=== PATIENT | female | born 2000 | race Caucasian/White ===

== ENCOUNTER 2025-04-09 10:22 | Emergency (ER) | payer SELFPAY ==
[~2025-04-09] VITALS: Ht 162.6 cm; Wt 52.2 kg
[2025-04-09] MEDS ORDERED: GABA-1172 PO (10:40)
[2025-04-09] MEDS ORDERED: METH36TA13 PO (10:41)
[2025-04-09] MEDS ORDERED: ABIL10TA9 PO (10:41)
[2025-04-09 11:15] LABS: BASO # 0.0 10^3/uL (0.0-0.2); BASO % 0.3 % (0.0-1.0); EOS # 0.1 10^3/uL (0.0-0.5); EOS % 0.4 % (0.0-3.0); LYMPH # 1.6 10^3/uL (1.5-5.0); LYMPH % 13.5 % (24.0-44.0); MONO # 0.6 10^3/uL (0.0-0.8); MONO % 5.4 % (2.0-8.0); NEUTROPHILS # 9.4 10^3/uL (1.5-8.5); NEUTROPHILS % 80.0 % (36.0-66.0); PLATELET COUNT, AUTOMATED 536 10^3/uL (150-450)
[2025-04-09] MEDS: HALOPERIDOL LACTATE 5 MG/ML VIAL IV STA (11:18)
[2025-04-09] MEDS: NS (Normal Saline) 0.9% 1,000 ML IV ONE (11:19)
[2025-04-09 11:36] LABS: HCG, SERUM QUALITATIVE NEGATIVE (NEGATIVE)
[2025-04-09 11:38] LABS: ALT/SGPT 72 U/L (7.0-40); AST/SGOT 39 U/L (<34); CALCIUM LEVEL 9.7 MG/DL (8.5-10.1); CARBON DIOXIDE LEVEL 21 MMOL/L (20-31); CHLORIDE LEVEL 106 MMOL/L (98-107); CREATININE FOR GFR 0.68 MG/DL (0.55-1.30); GLOMERULAR FILTRATION RATE > 90.0 (>60); POTASSIUM SERUM 4.1 MMOL/L (3.5-5.1); SODIUM LEVEL 141 MMOL/L (136-145)
[2025-04-09] MEDS ORDERED: ISOVUE-370 76% 100 ML VIAL As Ordered ONE (11:51)
[2025-04-09 12:32] VITALS: BP 122/93
[2025-04-09 12:37] VITALS: O2SAT 98
[2025-04-09 13:16] LABS: KETONE, URINE AUTO RFX 1+ mg/dL (NEGATIVE); LEUKOCYTE ESTERASE UR AUTO RFX NEGATIVE (NEGATIVE); MUCUS, URINE RFX SMALL (NEGATIVE); NITRITE, URINE AUTO RFX NEGATIVE (NEGATIVE); RBC, URINE AUTO RFX 0 /HPF (0-3); SQUAM EPITHELIAL CELL UR AURFX 7 /HPF (0-6); WBC, URINE AUTO RFX 1 /HPF (0-3)
[2025-04-09] MEDS ORDERED: ONDA-282 PO (13:23)
[2025-04-09 13:29] VITALS: TEMP 96.4
== END 2025-04-09 13:33 | disposition home or self-care (01) ==
LOC: M ED 10:22
DX: R11.16 Cannabis hyperemesis syndrome (principal); R00.1 Bradycardia, unspecified; F17.200 Nicotine dependence, unspecified, uncomplicated; F12.10 Cannabis abuse, uncomplicated; Z88.8 Allergy status to other drugs, medicaments and biological substances; Z79.899 Other long term (current) drug therapy
CPT/HCPCS: 74177; 80048; 80076; 81001; 83690; 84703; 85025; 93005; 96361; 96374; 99284; J1630; Q9967